=== PATIENT | female | born 1975 | race Caucasian/White ===

== ENCOUNTER 2021-01-06 16:51 | Emergency (ER) | payer BC ==
[2021-01-06] MEDS ORDERED: Sodium Chloride 0.9% 2.5 ML Syringe FLUSH PRN (19:19)
[2021-01-06] MEDS ORDERED: Sodium Chloride 0.9% 10 ML Syringe FLUSH PRN (19:19)
[2021-01-06 20:21] LABS: BLOOD UREA NITROGEN,BUN 9 mg/dL (7.0-18.0); CARBON DIOXIDE,CO2 26.9 mmol/L (21.0-32.0); CHLORIDE,CL 97 mmol/L (98-107); GLUCOSE RANDOM 313 mg/dL (74-106); POTASSIUM,K 3.7 mmol/L (3.5-5.1); SODIUM,NA 137 mmol/L (136-145)
[2021-01-06] MEDS ORDERED: Sodium Chloride 0.9% 1,000 ML IV ONE (20:40)
[2021-01-06] MEDS ORDERED: Ketorolac 30 MG/ML SDV IVPUSH ONE (20:40)
--- NOTE | 2021-01-06 21:06 | PCM.EKG ---
#1 Interpretation EKG Interpretation Comments: EKG: January 06, 2021 7:26 PM As interpreted by ER physician: Dotty: Nonspecific ST-T wave abnormalities Normal axis Poor R wave progression No evidence of ST elevation HI Sinus tachycardia heart rate of 101
--- NOTE | 2021-01-06 21:41 | EDM.PDOC ---
<Ric Storm - Last Filed: 01/06/21 23:51> ED HPI GENERAL MEDICAL PROBLEM - General Chief Complaint: Respiratory Problem Stated Complaint: SOB Time Seen by Provider: 01/06/21 19:19 - History of Present Illness INITIAL COMMENTS - FREE TEXT/NARRATIVE: 11:51 PM: Signout received at 10 PM. Patient is a 45-year-old female with recent diagnosis of coronavirus who presents ER today complaining of increasing shortness of breath over the last couple days. Patient's labs are unremarkable. Patient had a CTA of her chest which reveals no evidence of PE or heart strain. Patient's pulse ox on room air is currently 91 to 94% while at rest. I have discussed with patient the need to rest over the next couple days and to make an appointment to follow-up with her doctor next week for reevaluation. Reassessment at the time of disposition demonstrates that the patient is in no acute distress. The patient has remained stable throughout the entire ED visit and is without objective evidence for acute process requiring urgent intervention or hospitalization. The patient is stable for discharge, counseling is provided as documented above, discussed symptomatic treatment and specific conditions for return. I have spoken with the patient/caregiver and discussed todays findings, in addition to providing specific details for the plan of care. Questions are answered and there is agreement with the plan. - Related Data Allergies Allergy/AdvReac Type Severity Reaction Status Date / Time No Known Allergies Allergy Verified 01/06/21 18:25 Home Meds: Home Meds Albuterol Sulfate [Albuterol Sulfate Hfa] 01/06/21 [History] Codeine/guaiFENesin [Robitussin AC] 01/06/21 [History] Phenylephrine/Dm/Acetaminop/Gg [Mucinex Fast-Max Cold-Flu Cap] 01/06/21 [History] ED ROS GENERAL - Review of Systems Review Of Systems: See Below ED EXAM, GENERAL - Physical Exam Exam: See Below Departure - Departure Time of Disposition: 23:52 Disposition: Home, Self-Care 01 Condition: Good Clinical Impression: SARS-associated coronavirus infection, Pneumonia due to COVID-19 virus - Discharge Information Instructions: Shortness of Breath, Adult, [id number], 10 Things You Can Do to Manage Your COVID-19 Symptoms at Home - CDC (11/02/2019), COVID-19: How to Protect Yourself and Others - CDC, COVID-19: What to Do if You Are Sick - CDC (05/03/2020) Referrals: PCP,None [Primary Care Provider] - Forms: ED Department Discharge Additional Instructions: You were seen and evaluated in ER today secondary to shortness of breath. You were recently diagnosed with coronavirus. The CT scan of your chest shows that you have inflammation in your lungs consistent with a recent coronavirus infection. There is no evidence of blood clot in your lungs or excessive strain on your heart. Please make an appointment see your family doctor in the next 2 to 3 days for reevaluation. Please go home, get plenty of rest, drink plenty of fluids. The following information is given to patients seen in the emergency department who are being discharged to home. This information is to outline your options for follow-up care. We provide all patients seen in our emergency department with a follow-up referral. The need for follow-up, as well as the timing and circumstances, are variable depending upon the specifics of your emergency department visit. If you don't have a primary care physician on staff, we will provide you with a referral. We always advise you to contact your personal physician following an emergency department visit to inform them of the circumstance of the visit and for follow-up with them and/or the need for any referrals to a consulting specialist. The emergency department will also refer you to a specialist when appropriate. This referral assures that you have the opportunity for follow-up care with a specialist. All of these measure are taken in an effort to provide you with optimal care, which includes your follow-up. Under all circumstances we always encourage you to contact your private physician who remains a resource for coordinating your care. When calling for follow-up care, please make the office aware that this follow-up is from your recent emergency room visit. If for any reason you are refused follow-up, please contact the [facility] Emergency Department at and asked to speak to the emergency department charge nurse. [facility] [address] [place] [id number] [address] <Ximena Garcia - Last Filed: 01/07/21 11:53> ED HPI GENERAL MEDICAL PROBLEM - General Source of Information: Reports: Patient History Limitations: Reports: No Limitations - History of Present Illness INITIAL COMMENTS - FREE TEXT/NARRATIVE: HISTORY AND PHYSICAL: History of present illness: Patient is a 45-year-old female, with history of poorly controlled type 2 diabetes, who presents emergency room today with concern of worsening shortness of breath and cough with a COVID-19 diagnosis from December 25. Patient states that she has been officially cleared by the state to go off quarantine 2 days ago but states that over the past 2 days, she has had worsening shortness of breath and cough despite being off quarantine. Patient states that she had symptoms of Covid starting December 25 and was diagnosed on the and states that she has had a "rough go of it ". Patient states that her biggest symptoms have been cough and shortness of breath and states that she was getting better until 2 days ago she was getting worse again. Patient states other than poorly controlled diabetes, she has no other health history. Patient denies any other symptoms or concerns. Patient denies fever, chills, chest pain. Denies headache, neck stiff ness, change in vision, syncope, or near syncope. Denies nausea, vomiting, abdominal pain, diarrhea, constipation, or dysuria. Has not noted any blood in urine or stool. Patient has been eating and drinking appropriately. Review of systems: As per history of present illness and below otherwise all systems reviewed and negative. Past medical history: As per history of present illness and as reviewed below otherwise noncontributory. Surgical history: As per history of present illness and as reviewed below otherwise noncontributory. Social history: See social history for further information Family history: As per history of present illness and as reviewed below otherwise noncontributory. Physical exam: General: Patient is alert, oriented, and in no acute distress. Patient sitting comfortably on exam table. Patient 93% on room air with increased respiratory rate of 24, otherwise vitally stable and reviewed by me. Patient had appearing. HEENT: Atraumatic, normocephalic, pupils equal and reactive bilaterally, negative for conjunctival pallor or scleral icterus, mucous membranes moist, TMs normal bilaterally, throat clear, neck supple, nontender, trachea midline. No drooling or trismus noted. No meningeal signs. No hot potato voice noted. Lungs: Dry cough on exam. Clear to auscultation, breath sounds equal bilaterally, chest nontender. Patient speaking clearly without breathlessness, no wheezing or stridor, no accessory muscle use or respiratory distress. Heart: S1S2, regular rate and rhythm without overt murmur Abdomen: Soft, nondistended, nontender. Negative for masses or hepatosplenomegaly. Negative for costovertebral tenderness. Pelvis: Stable nontender. Genitourinary: Deferred. Rectal: Deferred. Skin: Intact, warm, dry. No lesions or rashes noted. Extremities: Atraumatic, negative for cords or calf pain. Neurovascular unremarkable. Neuro: Awake, alert, oriented. Cranial nerves II through XII unremarkable. Cerebellum unremarkable. Motor and sensory unremarkable throughout. Exam nonfocal. Notes: Patient is a 45-year-old female who presents emergency room today secondary to worsening shortness of breath and cough with COVID-19 diagnosis from December 25. Upon arrival to the ED, patient's oxygen on room air is 93% with increased respiratory rate of 24, otherwise vitally stable and reviewed by me. Patient was placed on 3 L nasal cannula and satting 95% with improvement of respiratory rate of 18. Will obtain cardiac evaluation as well as plan to obtain angiography chest to rule out possible pulmonary embolism. See Dr. Storm dictation for specific EKG interpretation. Otherwise, sinus tachycardia with a rate of 101. No STEMI. CBC unremarkable. CMP shows elevation of glucose at 313, mild hypochloremia of 97, alk phos isolated in isolation at 194, otherwise mild derangements of CMP unremarkable. Troponin negative. hCG negative. Dr. Storm has assumed care of patient and will follow remaining diagnostics and disposition Diagnostics: EKG, CBC, CMP, Serum hcg, Trop, Ang CT chest Therapeutics: NS, 3LNC Prescription: Impression: COVID-19 viral infection Plan: Definitive disposition and diagnosis as appropriate pending reevaluation and review of above. 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 ED EXAM, GENERAL - Physical Exam Exam: See Below (see dictation) Course - Vital Signs Last Recorded V/S: Last Vital Signs Temp 98.4 F 01/07/21 00:06 Pulse 81 01/07/21 00:06 Resp 18 01/07/21 00:06 BP 97/54 L 01/07/21 00:06 Pulse Ox 91 L 01/07/21 00:06 - Orders/Labs/Meds Orders: Active Orders 24 hr Category Date Time Status Saline Lock Insert [OM.PC] Stat Oth 01/06/21 19:19 Ordered Labs: Laboratory Tests 01/06/21 01/06/21 01/06/21 Range/Units 19:45 19:45 19:45 WBC 6.79 (4.0-11.0) K/uL RBC 5.00 (4.30-5.90) M/uL Hgb 15.4 (12.0-16.0) g/dL Hct 44.6 (36.0-46.0) % MCV 89.2 (80.0-98.0) fL MCH 30.8 (27.0-32.0) pg MCHC 34.5 (31.0-37.0) g/dL RDW Std Deviation 40.6 (28.0-62.0) fl RDW Coeff of Pema 13 (11.0-15.0) % Plt Count 204 (150-400) K/uL MPV 10.10 (7.40-12.00) fL Neut % (Auto) 61.7 (48.0-80.0) % Lymph % (Auto) 27.4 (16.0-40.0) % [place] % (Auto) 9.6 (0.0-15.0) % Eos % (Auto) 1.0 (0.0-7.0) % Baso % (Auto) 0.3 (0.0-1.5) % Neut # (Auto) 4.2 (1.4-5.7) K/uL Lymph # (Auto) 1.9 (0.6-2.4) K/uL [place] # (Auto) 0.7 (0.0-0.8) K/uL Eos # (Auto) 0.1 (0.0-0.7) K/uL Baso # (Auto) 0.0 (0.0-0.1) K/uL Nucleated RBC % 0.0 /100WBC Nucleated RBCs # 0 K/uL Sodium 137 (136-145) mmol/L Potassium 3.7 (3.5-5.1) mmol/L Chloride 97 L (98-107) mmol/L Carbon Dioxide 26.9 (21.0-32.0) mmol/L BUN 9 (7.0-18.0) mg/dL Creatinine 0.8 (0.6-1.0) mg/dL Est Cr Clr Drug Dosing 85.45 mL/min Estimated GFR (MDRD) > 60.0 ml/min Glucose 313 H (74-106) mg/dL Calcium 8.8 (8.5-10.1) mg/dL Total Bilirubin 0.6 (0.2-1.0) mg/dL AST 22 (15-37) IU/L ALT 29 (14-63) IU/L Alkaline Phosphatase 194 H (46-116) U/L Troponin I < 0.050 (0.000-0.056) ng/mL Total Protein 7.1 (6.4-8.2) g/dL Albumin 2.5 L (3.4-5.0) g/dL Globulin 4.6 H (2.6-4.0) g/dL Albumin/Globulin Ratio 0.5 L (0.9-1.6) HCG, Qual NEGATIVE (NEG) Meds: Medications Discontinued Medications Generic Name Dose Route Start Last Admin Trade Name Freq PRN Reason Stop Dose Admin Sodium Chloride 1,000 mls @ 999 mls/hr 01/06/21 20:40 01/06/21 21:17 Normal Saline IV 01/06/21 21:40 999 mls/hr STAT ONE Administration Iopamidol 100 ml 01/06/21 22:11 01/06/21 22:59 Iopamidol 755 Mg/Ml 100 Ml Bottle IVPUSH 01/06/21 22:12 100 ml ONETIME ONE Administration Ketorolac Tromethamine 30 mg 01/06/21 20:40 01/06/21 21:17 Ketorolac 30 Mg/Ml Sdv IVPUSH 01/06/21 20:41 30 mg ONETIME ONE Administration Sodium Chloride 10 ml 01/06/21 19:19 01/06/21 20:22 Sodium Chloride 0.9% 10 Ml Syringe FLUSH 10 ml ASDIRECTED PRN Administration Keep Vein Open Sodium Chloride 2.5 ml 01/06/21 19:19 01/06/21 20:23 Sodium Chloride 0.9% 2.5 Ml Syringe FLUSH 2.5 ml ASDIRECTED PRN Administration Keep Vein Open Sepsis Event Note (ED) - Evaluation Sepsis Screening Result: No Definite Risk - Focused Exam Vital Signs: Vital Signs Temp Pulse Resp BP Pulse Ox 01/07/21 00:06 98.4 F 81 18 97/54 L 91 L - My Orders Last 24 Hours: My Active Orders 01/06/21 19:19 Saline Lock Insert [OM.PC] Stat - Assessment/Plan Last 24 Hours: My Active Orders 01/06/21 19:19 Saline Lock Insert [OM.PC] Stat
[2021-01-06] MEDS ORDERED: Iopamidol 755 Mg/ML 100 ML Bottle IVPUSH ONE (22:11)
--- NOTE | 2021-01-06 23:41 | CT ---
INDICATION: Short of breath. History of COVID pneumonia. TECHNIQUE: Axial images. Sagittal and coronal reconstructions. 100 mL Isovue-[address] pulmonary angiogram protocol. COMPARISON: None. FINDINGS: Pulmonary arteries: Good contrast opacification. No filling defects to suggest an acute pulmonary embolus. Remainder of the chest: Normal heart size. No pericardial effusion. No CT signs of right-sided heart strain. Normal caliber thoracic aorta with no evidence of an aortic dissection. No pathologically enlarged intrathoracic lymph nodes are identified. There is peripherally predominant ground-glass and consolidative airspace disease seen in both lungs, with a mid and lower lung predominance. Findings are commonly seen with COVID pneumonia. No pleural fluid. Upper abdomen: Cholecystectomy. 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 Bones: No acute abnormality. IMPRESSION: 1. No CT evidence of an acute pulmonary embolus. 2. Multifocal airspace disease with an appearance typical for COVID pneumonia. 3. Incidental findings as noted above. Please note that all CT scans at this facility use dose modulation, iterative reconstruction, and/or weight-based dosing when appropriate to reduce radiation dose to as low as reasonably achievable. Dictated by Baljeet Velez MD @ 01/07/2021 3:44:46 PM (Electronically Signed)
== END 2021-01-07 00:16 | disposition home or self-care (01) ==
LOC: MW.ED 16:51
DX: U07.1 COVID-19 (principal); J12.82 Pneumonia due to coronavirus disease 2019; E13.9 Other specified diabetes mellitus without complications; Z87.891 Personal history of nicotine dependence
CPT/HCPCS: 36415; 71275; 80053; 84484; 84703; 85025; 93005; 96374; 99285; J1885; J7030; Q9967